=== PATIENT | female | born 1950 | race Caucasian/White ===

== ENCOUNTER 2018-12-16 11:19 | Emergency (ER) | payer MEDICARE, OTHER ==
--- NOTE | 2018-12-16 11:42 | ERPHSYRPT ---
- History of Present Illness Time Seen by Provider: 12/16/18 11:32 Source: patient Exam Limitations: no limitations Physician History: c/o sore throat, nonproductive cough x 2 days, denies fever, chills, headaches, nausea, vomiting, other complaints. Timing/Duration: gradual onset Severity: moderate ENT Location: throat Prearrival Treatment: no prearrival treatment Modifying Factors: Improves With: nothing Associated Symptoms: cough, sore throat Allergies/Adverse Reactions: Sulfa (Sulfonamide Antibiotics) Allergy (Verified 09/16/13 20:36) Home Medications: Ibandronate Sodium [Boniva] 150 mg PO UD 09/16/13 [History] Simvastatin 20Mg [Zocor 20Mg] 20 mg PO DAILY 09/16/13 [History] Hx Influenza Vaccination/Date Given: Yes (2012) Hx Pneumococcal Vaccination/Date Given: No - Review of Systems Constitutional: No Symptoms Eyes: No Symptoms Ears, Nose, & Throat: Throat Pain, Painful Swallowing, No Throat Swelling, No Hoarse, No Stridor Respiratory: Cough, No Dyspnea Cardiac: No Symptoms Abdominal/Gastrointestinal: No Symptoms Genitourinary Symptoms: No Symptoms Musculoskeletal: No Symptoms Skin: No Symptoms Neurological: No Symptoms All Other Systems: Reviewed and Negative - Past Medical History Neurological History: No Pertinent History Cardiac History: High Cholesterol Respiratory History: No Pertinent History Endocrine Medical History: No Pertinent History Musculoskeletal History: Arthritis Other Medical History: Osteopenia - Past Surgical History Past Surgical History: Yes Other Surgical History: cyst removed - Social History Smoking Status: Never smoker Exposure to second hand smoke: No Drug Use: none - Nursing Vital Signs Nursing Vital Signs: Initial Vital Signs Temperature 98.5 F 12/16/18 11:19 Pulse Rate 100 H 12/16/18 11:19 Respiratory Rate 20 12/16/18 11:19 Blood Pressure 145/95 12/16/18 11:19 O2 Sat by Pulse Oximetry 100 12/16/18 11:19 Pain Scale Pain Intensity 4 - Physical Exam General Appearance: no apparent distress Eye Exam: bilateral eye: normal inspection Ear Exam: bilateral ear: canal normal, TM normal Nasal Exam: normal inspection Throat Exam: normal, pharynx normal, moist mucus membranes, uvula swelling, No excessive drooling, No mandibular swelling, No pharynx swelling, No tongue swollen, No tonsillar exudate Neck Exam: normal inspection, non-tender, supple, trachea midline, No JVD, No lymphadenopathy (R), No lymphadenopathy (L), No tender midline Cardiovascular/Respiratory Exam: chest non-tender, normal breath sounds, heart sounds normal, no ecchymosis, no JVD, no respiratory distress, No regular rate/ rhythm Abdominal Exam: non-tender, soft Neurologic Exam: alert, oriented x 3, normal mood/affect Skin Exam: normal color, warm, dry, No rash SpO2 Interpretation: normal O2 Delivery: Room Air - Course Nursing assessment & vital signs reviewed: Yes - Radiology Exams Chest X-ray Interpretation: Interpreted by me, Negative Ordered Tests: Active Orders 24 hr Category Date Time Status CHEST 2 VIEWS (PA AND LAT) Stat Exams 12/16/18 11:39 Taken Lab/Rad Data: Laboratory Results 12/16/18 Range/Units 11:51 Group A Strep Antibody NEGATIVE (NEGATIVE) - Progress Progress: unchanged Progress Note: 12/16/18 13:07 Pt has been afebrile, no severe pain or difficulty breathing, we reviewed her results, instructed her to rest x 2-3 days, drink plenty of fluids, and gargle frequently, and follow up with her physician in 2-3 days. Counseled pt/family regarding: lab results, diagnosis, need for follow-up, rad results - Departure Departure Disposition: Home Clinical Impression: Pharyngitis Qualifiers: Pharyngitis/tonsillitis etiology: other specified organisms Qualified Code(s): J02.8 - Acute pharyngitis due to other specified organisms Condition: Stable Critical Care Time: No Referrals: MISSY YEPEZ [Primary Care Provider] - Instructions: Sore Throat, Adult (DC), Viral Pharyngitis (DC) Additional Instructions: Rest x 2-3 days, drink plenty of fluids, and gargle frequently with warm saline water, and follow up with your physician in 2-3 days, return if severe headaches , vomiting, high fever> 102 F!
[2018-12-16 11:55] VITALS: BP 145/95; PULSE 100; O2SAT 100
--- NOTE | 2018-12-16 16:37 | XRAY ---
Indication: Cough. Comparison: July 23, 2009. PA/lateral chest hyperinflated and clear. Heart is not enlarged. Bony thorax intact with mild osteopenia and degenerative changes. Impression: Nonacute hyperinflated chest.
== END 2018-12-16 13:22 | disposition home or self-care (01) ==
LOC: ED 11:19
DX: J02.8 Acute pharyngitis due to other specified organisms (principal)
CPT/HCPCS: 71046; 87651; 99283

== ENCOUNTER 2021-01-28 16:40 | Emergency (ER) | payer MEDICARE, OTHER ==
--- NOTE | 2021-01-28 16:51 | ERPHSYRPT ---
- History of Present Illness Time Seen by Provider: 01/28/21 16:50 Historian: patient Exam Limitations: no limitations Physician History: This is a 70-year-old white female had the week history of intermittent diarrhea and vomiting. Her symptoms are worse today. She has some generalized abdominal pain. She denies chest pain and she denies shortness of breath. Patient denies fevers and chills. No other individuals in the family of similar symptoms. Patient has not seen a primary care provider for the symptoms however this past weekend she did go to see [facility]. Timing/Duration: week(s) Activities at Onset: none Quality: cramping Abdominal Pain Onset Location: generalized abdomen Pain Radiation: no radiation Severity of Pain-Max: mild Severity of Pain-Current: mild Modifying Factors: Improves With: vomiting, other (Area) Associated Symptoms: diarrhea, nausea, vomiting Previous symptoms: same symptoms as today, recently seen Allergies/Adverse Reactions: Sulfa (Sulfonamide Antibiotics) Allergy (Verified 01/28/21 17:05) Hx Influenza Vaccination/Date Given: Yes (2012) Hx Pneumococcal Vaccination/Date Given: No Travel Risk - International Travel Have you traveled outside of the country in past 3 weeks: No - Coronavirus Screening Are you exhibiting any of the following symptoms?: No Close contact with a COVID-19 positive Pt in past 14-21 Days: No - Review of Systems Constitutional: Weakness Eyes: No Symptoms Ears, Nose, & Throat: No Symptoms Respiratory: No Symptoms Cardiac: No Symptoms Abdominal/Gastrointestinal: Abdominal Pain, Nausea, Vomiting, Diarrhea Genitourinary Symptoms: No Symptoms Musculoskeletal: No Symptoms Skin: No Symptoms Neurological: No Symptoms Psychological: No Symptoms Endocrine: No Symptoms Hematologic/Lymphatic: No Symptoms Immunological/Allergic: No Symptoms All Other Systems: Reviewed and Negative - Past Medical History Pertinent Past Medical History: Yes Neurological History: No Pertinent History Cardiac History: High Cholesterol Respiratory History: No Pertinent History Endocrine Medical History: No Pertinent History Musculoskeletal History: Arthritis Other Medical History: Osteopenia - Past Surgical History Past Surgical History: Yes Other Surgical History: cyst removed - Social History Smoking Status: Never smoker Exposure to second hand smoke: No Drug Use: none Patient Lives Alone: No - Nursing Vital Signs Nursing Vital Signs: Initial Vital Signs Temperature 97.2 F 01/28/21 17:00 Pulse Rate 81 01/28/21 17:00 Respiratory Rate 18 01/28/21 17:00 Blood Pressure 160/94 01/28/21 17:00 O2 Sat by Pulse Oximetry 100 01/28/21 17:00 Pain Scale Pain Intensity 10 - Physical Exam General Appearance: no apparent distress, alert, anxiety, thin Eye Exam: PERRL/EOMI, eyes nml inspection Ears, Nose, Throat Exam: normal ENT inspection, moist mucous membranes Neck Exam: normal inspection, non-tender, supple, full range of motion Respiratory Exam: normal breath sounds, lungs clear, No chest tenderness, No respiratory distress Cardiovascular Exam: regular rate/rhythm, normal heart sounds, normal peripheral pulses Gastrointestinal/Abdomen Exam: soft, normal bowel sounds, tenderness (Diffuse), No guarding Pelvic Exam: not done Rectal Exam: not done Back Exam: normal inspection, normal range of motion, No CVA tenderness, No vertebral tenderness Extremity Exam: normal inspection, normal range of motion, pelvis stable Neurologic Exam: alert, oriented x 3, cooperative, analytical research program manager II-XII nml as tested, normal mood/affect, nml cerebellar function, nml station & gait, sensation nml Skin Exam: normal color, warm, dry Lymphatic Exam: No adenopathy SpO2 Interpretation: normal O2 Delivery: Room Air - Course Nursing assessment & vital signs reviewed: Yes Ordered Tests: Active Orders 24 hr Category Date Time Status IV Insertion STAT Care 01/28/21 17:31 Active ABDOMEN AND PELVIS W/0 CONTRAS [CT] Stat Exams 01/28/21 17:32 Taken AMYLASE Stat Lab 01/28/21 17:53 Completed CBC W DIFF Stat Lab 01/28/21 17:53 Completed CMP Stat Lab 01/28/21 17:53 Completed LIPASE Stat Lab 01/28/21 17:53 Completed Lactic Acid Stat Lab 01/28/21 18:15 Completed UA W/RFX UR CULTURE Stat Lab 01/28/21 17:58 Completed Medication Summary Discontinued Medications Generic Name Dose Route Start Last Admin Trade Name Freq PRN Reason Stop Dose Admin Sodium Chloride 1,000 mls @ 999 mls/hr 01/28/21 17:31 01/28/21 17:48 Sodium Chloride 0.9% 1000 Ml IV 01/28/21 18:31 999 mls/hr .Q1H1M STA Administration Sodium Chloride Confirm 01/28/21 17:47 Sodium Chloride 0.9% 1000 Ml Administered 01/28/21 17:48 Dose 1,000 mls @ ud .ROUTE .STK-MED ONE Metronidazole 500 mg 01/28/21 19:21 Flagyl 500 Mg PO 01/28/21 19:22 STAT ONE Ondansetron HCl 4 mg 01/28/21 17:31 01/28/21 17:48 Zofran 4 Mg/2 Ml Vial IV 01/28/21 17:32 4 mg STAT ONE Administration Ondansetron HCl Confirm 01/28/21 17:47 Zofran 4 Mg/2 Ml Vial Administered 01/28/21 17:48 Dose 4 mg .ROUTE .STK-MED ONE Lab/Rad Data: Laboratory Result Diagrams 01/28/21 17:53 01/28/21 17:53 Laboratory Results 01/28/21 01/28/21 01/28/21 Range/Units 18:15 17:58 17:53 WBC (4.0-10.5) K/mm3 RBC (4.1-5.4) M/mm3 Hgb (12.0-16.0) gm/dl Hct (35-47) % MCV (78-100) fl MCH (26-32) pg MCHC (32-36) g/dl RDW (11.5-14.0) % Plt Count (150-450) K/mm3 MPV (7.5-11.0) fl Gran % (36.0-66.0) % Eos # (Auto) (0-0.5) Absolute Lymphs (auto) (1.0-4.6) Absolute Monos (auto) (0.0-1.3) Lymphocytes % (24.0-44.0) % Monocytes % (0.0-12.0) % Eosinophils % (0.00-5.0) % Basophils % (0.0-0.4) % Absolute Granulocytes (1.4-6.9) Basophils # (0-0.4) Sodium 140 (137-145) mmol/L Potassium 3.7 (3.5-5.1) mmol/L Chloride 104 (98-107) mmol/L Carbon Dioxide 28 (22-30) mmol/L Anion Gap 12.2 (5-15) MEQ/L BUN 17 (7-17) mg/dL Creatinine 0.68 (0.52-1.04) mg/dL Estimated GFR > 60.0 ML/MIN Glucose 97 (74-106) mg/dL Lactic Acid 1.0 (0.4-2.0) Calcium 9.5 (8.4-10.2) mg/dL Total Bilirubin 0.60 (0.2-1.3) mg/dL AST 30 (14-36) U/L ALT 18 (0-35) U/L Alkaline Phosphatase 60 (38-126) U/L Serum Total Protein 7.3 (6.3-8.2) g/dL Albumin 4.4 (3.5-5.0) g/dL Amylase 74 (30-110) U/L Lipase 132 (23-300) U/L Urine Color YELLOW (YELLOW) Urine Appearance CLEAR (CLEAR) Urine pH 6.0 (5-6) Ur Specific [place] 1.017 (1.005-1.025) Urine Protein NEGATIVE (Negative) Urine Ketones SMALL (NEGATIVE) Urine Blood NEGATIVE (0-5) Rolo/ul Urine Nitrite NEGATIVE (NEGATIVE) Urine Bilirubin NEGATIVE (NEGATIVE) Urine Urobilinogen NEGATIVE (0-1) mg/dL Ur Leukocyte Esterase NEGATIVE (NEGATIVE) Urine WBC (Auto) 0-2 (0-5) /HPF Urine RBC (Auto) 0-2 (0-2) /HPF U Epithel Cells (Auto) NONE (FEW) /HPF Urine Bacteria (Auto) NONE SEEN (NEGATIVE) /HPF Urine Mucus (Auto) SLIGHT (NEGATIVE) /HPF Urine Culture Reflexed NO (NO) Urine Glucose NEGATIVE (NEGATIVE) mg/dL 01/28/21 Range/Units 17:53 WBC 15.0 H (4.0-10.5) K/mm3 RBC 4.65 (4.1-5.4) M/mm3 Hgb 14.0 (12.0-16.0) gm/dl Hct 43.7 (35-47) % MCV 94.0 (78-100) fl MCH 30.1 (26-32) pg MCHC 32.0 (32-36) g/dl RDW 13.7 (11.5-14.0) % Plt Count 293 (150-450) K/mm3 MPV 9.8 (7.5-11.0) fl Gran % 87.0 H (36.0-66.0) % Eos # (Auto) 0.13 (0-0.5) Absolute Lymphs (auto) 1.00 (1.0-4.6) Absolute Monos (auto) 0.79 (0.0-1.3) Lymphocytes % 6.7 L (24.0-44.0) % Monocytes % 5.3 (0.0-12.0) % Eosinophils % 0.9 (0.00-5.0) % Basophils % 0.1 (0.0-0.4) % Absolute Granulocytes 13.04 H (1.4-6.9) Basophils # 0.02 (0-0.4) Sodium (137-145) mmol/L Potassium (3.5-5.1) mmol/L Chloride (98-107) mmol/L Carbon Dioxide (22-30) mmol/L Anion Gap (5-15) MEQ/L BUN (7-17) mg/dL Creatinine (0.52-1.04) mg/dL Estimated GFR ML/MIN Glucose (74-106) mg/dL Lactic Acid (0.4-2.0) Calcium (8.4-10.2) mg/dL Total Bilirubin (0.2-1.3) mg/dL AST (14-36) U/L ALT (0-35) U/L Alkaline Phosphatase (38-126) U/L Serum Total Protein (6.3-8.2) g/dL Albumin (3.5-5.0) g/dL Amylase (30-110) U/L Lipase (23-300) U/L Urine Color (YELLOW) Urine Appearance (CLEAR) Urine pH (5-6) Ur Specific [place] (1.005-1.025) Urine Protein (Negative) Urine Ketones (NEGATIVE) Urine Blood (0-5) Rolo/ul Urine Nitrite (NEGATIVE) Urine Bilirubin (NEGATIVE) Urine Urobilinogen (0-1) mg/dL Ur Leukocyte Esterase (NEGATIVE) Urine WBC (Auto) (0-5) /HPF Urine RBC (Auto) (0-2) /HPF U Epithel Cells (Auto) (FEW) /HPF Urine Bacteria (Auto) (NEGATIVE) /HPF Urine Mucus (Auto) (NEGATIVE) /HPF Urine Culture Reflexed (NO) Urine Glucose (NEGATIVE) mg/dL - Progress Progress Note: 01/28/21 19:10 CT scan of the abdomen pelvis without contrast shows mild fluid distended small bowel loops with wall thickening favoring enteritis. Remainder of AP CT scan negative Counseled pt/family regarding: lab results, diagnosis, need for follow-up, rad results - Departure Departure Disposition: Home Clinical Impression: Enteritis Condition: Stable Critical Care Time: No Referrals: MISSY YEPEZ [Primary Care Provider] - Additional Instructions: Drink plenty of clear liquids. Do not advance diet until you are tolerating a large amount of clear liquids orally. Take your medication as prescribed. Follow-up with your primary care doctor tomorrow to make arrangements for follow-up appointment. Prescriptions: Ondansetron ODT 4 MG [Zofran Odt 4 mg] 4 mg PO Q6H PRN PRN #10 tab.rapdis PRN Reason: Vomiting Metronidazole 500 mg [Flagyl 500 MG] 500 mg PO TID #21 tablet
[2021-01-28] MEDS ORDERED: Sodium Chloride 0.9% 1000 ML 1,000 ML IV STA (17:31)
[2021-01-28] MEDS ORDERED: Zofran 4 MG/2 ML VIAL IV ONE (17:31)
[2021-01-28] MEDS ORDERED: Zofran 4 MG/2 ML VIAL ONE (17:47)
[2021-01-28] MEDS ORDERED: Sodium Chloride 0.9% 1000 ML 1,000 ML ONE (17:47)
[2021-01-28 18:00] LABS: Absolute Neutrophil Ct (ANC) 13.04 (1.4-6.9); BASOPHIL % 0.1 % (0.0-0.4); Basophil (Absolute #) 0.02 (0-0.4); Eosinophil % 0.9 % (0.00-5.0); Eosinophil (Absolute #) 0.13 (0-0.5); Hematocrit 43.7 % (35-47); Lymphocytes % 6.7 % (24.0-44.0); Mean Corpuscular Hemoglobin 30.1 pg (26-32); Mean Platelet Volume 9.8 fl (7.5-11.0); Monocyte (Absolute #) 0.79 (0.0-1.3); Monocytes % 5.3 % (0.0-12.0); Platelet Count 293 K/mm3 (150-450); Red Blood Count 4.65 M/mm3 (4.1-5.4); Red Cell Distribution Width 13.7 % (11.5-14.0)
[2021-01-28 18:03] LABS: Appearance CLEAR (CLEAR); Bilirubin NEGATIVE (NEGATIVE); Blood NEGATIVE Ery/ul (0-5); Glucose NEGATIVE (NEGATIVE); Ketones SMALL (NEGATIVE); Leukocyte Esterase NEGATIVE (NEGATIVE); Mucus SLIGHT /HPF (NEGATIVE); Nitrite NEGATIVE (NEGATIVE); Protein,Urine Dip NEGATIVE (Negative); RBC 0-2 /HPF (0-2); Specific Gravity 1.017 (1.005-1.025); Urobilinogen NEGATIVE mg/dL (0-1); WBC 0-2 /HPF (0-5)
[2021-01-28 18:14] LABS: ALBUMIN 4.4 g/dL (3.5-5.0); ALKALINE PHOSPHATASE 60 U/L (38-126); AMYLASE 74 U/L (30-110); ANION GAP 12.2 MEQ/L (5-15); BLOOD UREA NITROGEN 17 mg/dL (7-17); CHLORIDE 104 mmol/L (98-107); Calcium 9.5 mg/dL (8.4-10.2); Carbon Dioxide 28 mmol/L (22-30); Creatinine 1 0.68 mg/dL (0.52-1.04); EST GLOMERULAR FILTRATION RATE > 60.0 ML/MIN; Glucose 97 mg/dL (74-106); LIPASE 132 U/L (23-300); Potassium 3.7 mmol/L (3.5-5.1); SGOT/AST 30 U/L (14-36); SGPT/ALT 18 U/L (0-35); SODIUM 140 mmol/L (137-145); Total Protein 7.3 g/dL (6.3-8.2)
[2021-01-28 18:19] LABS: Bacteria NONE SEEN /HPF (NEGATIVE)
[2021-01-28] MEDS ORDERED: Flagyl 500 MG PO ONE (19:21)
[2021-01-28] MEDS ORDERED: ZOFRAN ODT 4 MG PO ONE (19:22)
[2021-01-28] MEDS ORDERED: Flagyl 500 MG ONE (19:27)
[2021-01-28] MEDS ORDERED: ZOFRAN ODT 4 MG ONE (19:27)
[2021-01-28 19:50] VITALS: BP 162/88; PULSE 75; O2SAT 99
--- NOTE | 2021-01-29 08:50 | XRAY ---
Indication: Abdomen pain, nausea, vomiting, diarrhea. Multiple contiguous axial images obtained through the abdomen and pelvis without contrast. Comparison: None Lung bases demonstrates minimal left base fibrosis/scarring. No infiltrate or effusion. Heart not enlarged. Noncontrasted stomach and bowel loops appear nonobstructed. Mild fluid distended small bowel loops with several demonstrating circumferential wall thickening in the left abdomen favoring enteritis. No free fluid/air. Appendix not visualized. A few nonobstructing punctate calculi in each kidney. Remaining liver, gallbladder, pancreas, spleen, adrenal glands, kidneys, ureters, bladder, and uterus appear unremarkable for noncontrast exam. Mild scattered aortoiliac calcifications without AAA. Osseous structures demonstrates osteopenia, mild/moderate multilevel degenerative spondylosis, and bilateral L5 spondylolysis with 8 mm spondylolisthesis. Impression: 1. CT findings favoring enteritis. No complications. 2. Incidental nonobstructing bilateral renal micro-calculi and chronic bony findings. 3. Remaining CT abdomen/pelvis without contrast exam is negative.
== END 2021-01-28 20:02 | disposition home or self-care (01) ==
LOC: ED 16:40
DX: K52.9 Noninfective gastroenteritis and colitis, unspecified (principal); R19.7 Diarrhea, unspecified; R11.2 Nausea with vomiting, unspecified; R10.9 Unspecified abdominal pain; E78.00 Pure hypercholesterolemia, unspecified
CPT/HCPCS: 36000; 36415; 74176; 80053; 81001; 82150; 83605; 83690; 85025; 96360; 96374; 99284; J2405; Q0162; A9270-GY

== ENCOUNTER 2021-05-19 16:50 | Emergency (ER) | payer MEDICARE, OTHER ==
--- NOTE | 2021-05-19 18:35 | ERPHSYRPT ---
- History of Present Illness Time Seen by Provider: 05/19/21 17:55 Source: patient Exam Limitations: no limitations Patient Subjective Stated Complaint: Pt c/o of weakness, body aches, headache, diarrhea, and nausea Triage Nursing Assessment: Pt brought to the ER by her , hypertensive, rates overall body pain as 8/10, shivering, afebrile, skin n/w/d, pulses normal, weak, decreased appetite and fluids Physician History: Patient is a 71-year-old female presents to our ED with her for evaluation of generalized weakness body aches headaches and diarrhea. Patient also feels mildly nauseous. Symptoms have been ongoing for approximately 2 to 3 days. Symptoms are progressive. Symptoms are moderate in intensity. No specific worsening improving factors. No associated chest pain or shortness of breath. Patient is currently afebrile. She reports no fevers. Decreased appetite. Timing/Duration: day(s) Severity: moderate Modifying Factors: Improves With: nothing Associated Symptoms: diaphoresis Allergies/Adverse Reactions: Sulfa (Sulfonamide Antibiotics) Allergy (Verified 05/19/21 19:02) Home Medications: Unobtainable 05/19/21 [History] Hx Tetanus, Diphtheria Vaccination/Date Given: No Hx Influenza Vaccination/Date Given: Yes (2012) Hx Pneumococcal Vaccination/Date Given: No Travel Risk - International Travel Have you traveled outside of the country in past 3 weeks: No - Coronavirus Screening Are you exhibiting any of the following symptoms?: Yes Symptoms: Vomiting/Diarrhea, Headaches/Body Aches/Fatigue Close contact with a COVID-19 positive Pt in past 14-21 Days: No - Vaccine Status Have you recieved a Covid-19 vaccination: No - Review of Systems Constitutional: No Symptoms, No Fever, No Chills Eyes: No Symptoms Ears, Nose, & Throat: No Symptoms Respiratory: No Symptoms, No Cough, No Dyspnea Cardiac: No Symptoms, No Chest Pain, No Edema, No Syncope Abdominal/Gastrointestinal: No Symptoms, No Abdominal Pain, No Nausea, No Vomiting, No Diarrhea Genitourinary Symptoms: No Symptoms, No Dysuria Musculoskeletal: No Symptoms, No Back Pain, No Neck Pain Skin: No Symptoms, No Rash Neurological: No Symptoms, No Dizziness, No Focal Weakness, No Sensory Changes Psychological: No Symptoms Endocrine: No Symptoms Hematologic/Lymphatic: No Symptoms Immunological/Allergic: No Symptoms All Other Systems: Reviewed and Negative - Past Medical History Pertinent Past Medical History: Yes Neurological History: No Pertinent History Cardiac History: High Cholesterol Respiratory History: No Pertinent History Endocrine Medical History: No Pertinent History Musculoskeletal History: Arthritis Other Medical History: Osteopenia - Past Surgical History Past Surgical History: Yes Other Surgical History: cyst removed - Social History Smoking Status: Never smoker Exposure to second hand smoke: No Drug Use: none Patient Lives Alone: No - Female History Hx Now: No - Nursing Vital Signs Nursing Vital Signs: Initial Vital Signs Temperature 98.5 F 05/19/21 17:50 Pulse Rate 76 05/19/21 17:50 Blood Pressure 170/114 05/19/21 17:50 O2 Sat by Pulse Oximetry 98 05/19/21 17:50 Pain Scale Pain Intensity 4 - Physical Exam General Appearance: no apparent distress, alert Eye Exam: PERRL/EOMI, eyes nml inspection Ears, Nose, Throat Exam: normal ENT inspection, TMs normal, pharynx normal, moist mucous membranes Neck Exam: normal inspection, non-tender, supple, full range of motion Respiratory Exam: normal breath sounds, lungs clear, No respiratory distress Cardiovascular Exam: regular rate/rhythm, normal heart sounds, normal peripheral pulses Gastrointestinal/Abdomen Exam: soft, normal bowel sounds, No tenderness, No mass Back Exam: normal inspection, normal range of motion, No CVA tenderness, No vertebral tenderness Extremity Exam: normal inspection, normal range of motion, pelvis stable Neurologic Exam: alert, oriented x 3, cooperative, normal mood/affect, nml cerebellar function, nml station & gait, sensation nml, No motor deficits Skin Exam: normal color, warm, dry, No rash Lymphatic Exam: No adenopathy SpO2 Interpretation: normal SpO2: 98 O2 Delivery: Room Air - Course Nursing assessment & vital signs reviewed: Yes EKG Interpreted by Me: RATE (69), Sinus Rhythm, NORMAL AXIS, NORMAL INTERVALS Ordered Tests: Active Orders 24 hr Category Date Time Status Property Condition Assessor STAT Care 05/19/21 18:35 Active IV Insertion STAT Care 05/19/21 18:34 Active Pulse Oximetry (ED) STAT Care 05/19/21 18:34 Active CBC W DIFF Stat Lab 05/19/21 18:34 Completed CMP Stat Lab 05/19/21 18:34 Completed TROPONIN Q3H Lab 05/19/21 18:45 Completed TROPONIN Q3H Lab 05/19/21 21:45 Ordered TROPONIN Q3H Lab 05/20/21 00:45 Ordered TROPONIN Q3H Lab 05/20/21 03:45 Ordered TROPONIN Q3H Lab 05/20/21 06:45 Ordered UA W/RFX UR CULTURE Stat Lab 05/19/21 18:34 Completed Medication Summary Generic Name Dose Route Start Last Admin Trade Name Freq PRN Reason Stop Dose Admin Sodium Chloride 1,000 mls @ 100 mls/hr 05/19/21 18:45 05/19/21 18:40 Sodium Chloride 0.9% 1000 Ml IV 06/18/21 18:44 100 mls/hr .Q10H ARIELLA Administration Discontinued Medications Generic Name Dose Route Start Last Admin Trade Name Freq PRN Reason Stop Dose Admin Ondansetron HCl 4 mg 05/19/21 20:12 Zofran 4 Mg/2 Ml Vial IV 05/19/21 20:13 STAT ONE Lab/Rad Data: Laboratory Result Diagrams 05/19/21 18:34 05/19/21 18:34 Laboratory Results 05/19/21 05/19/21 05/19/21 Range/Units 18:45 18:34 18:34 WBC 4.5 (4.0-10.5) K/mm3 RBC 4.05 L (4.1-5.4) M/mm3 Hgb 12.4 (12.0-16.0) gm/dl Hct 37.6 (35-47) % MCV 92.8 (78-100) fl MCH 30.6 (26-32) pg MCHC 33.0 (32-36) g/dl RDW 13.2 (11.5-14.0) % Plt Count 180 (150-450) K/mm3 MPV 11.1 H (7.5-11.0) fl Gran % 61.6 (36.0-66.0) % Eos # (Auto) 0.01 (0-0.5) Absolute Lymphs (auto) 1.20 (1.0-4.6) Absolute Monos (auto) 0.52 (0.0-1.3) Lymphocytes % 26.5 (24.0-44.0) % Monocytes % 11.5 (0.0-12.0) % Eosinophils % 0.2 (0.00-5.0) % Basophils % 0.2 (0.0-0.4) % Absolute Granulocytes 2.78 (1.4-6.9) Basophils # 0.01 (0-0.4) Sodium 136 L (137-145) mmol/L Potassium 3.6 (3.5-5.1) mmol/L Chloride 104 (98-107) mmol/L Carbon Dioxide 22 (22-30) mmol/L Anion Gap 13.9 (5-15) MEQ/L BUN 14 (7-17) mg/dL Creatinine 0.59 (0.52-1.04) mg/dL Estimated GFR > 60.0 ML/MIN Glucose 98 (74-106) mg/dL Calcium 8.8 (8.4-10.2) mg/dL Total Bilirubin 0.40 (0.2-1.3) mg/dL AST 42 H (14-36) U/L ALT 24 (0-35) U/L Alkaline Phosphatase 53 (38-126) U/L Troponin I < 0.012 (0.000-0.034) ng/mL Serum Total Protein 7.1 (6.3-8.2) g/dL Albumin 4.2 (3.5-5.0) g/dL Urine Color (YELLOW) Urine Appearance (CLEAR) Urine pH (5-6) Ur Specific [place] (1.005-1.025) Urine Protein (Negative) Urine Ketones (NEGATIVE) Urine Blood (0-5) Rolo/ul Urine Nitrite (NEGATIVE) Urine Bilirubin (NEGATIVE) Urine Urobilinogen (0-1) mg/dL Ur Leukocyte Esterase (NEGATIVE) Urine WBC (Auto) (0-5) /HPF Urine RBC (Auto) (0-2) /HPF U Epithel Cells (Auto) (FEW) /HPF Urine Bacteria (Auto) (NEGATIVE) /HPF Urine Culture Reflexed (NO) Urine Glucose (NEGATIVE) mg/dL 05/19/21 Range/Units 18:34 WBC (4.0-10.5) K/mm3 RBC (4.1-5.4) M/mm3 Hgb (12.0-16.0) gm/dl Hct (35-47) % MCV (78-100) fl MCH (26-32) pg MCHC (32-36) g/dl RDW (11.5-14.0) % Plt Count (150-450) K/mm3 MPV (7.5-11.0) fl Gran % (36.0-66.0) % Eos # (Auto) (0-0.5) Absolute Lymphs (auto) (1.0-4.6) Absolute Monos (auto) (0.0-1.3) Lymphocytes % (24.0-44.0) % Monocytes % (0.0-12.0) % Eosinophils % (0.00-5.0) % Basophils % (0.0-0.4) % Absolute Granulocytes (1.4-6.9) Basophils # (0-0.4) Sodium (137-145) mmol/L Potassium (3.5-5.1) mmol/L Chloride (98-107) mmol/L Carbon Dioxide (22-30) mmol/L Anion Gap (5-15) MEQ/L BUN (7-17) mg/dL Creatinine (0.52-1.04) mg/dL Estimated GFR ML/MIN Glucose (74-106) mg/dL Calcium (8.4-10.2) mg/dL Total Bilirubin (0.2-1.3) mg/dL AST (14-36) U/L ALT (0-35) U/L Alkaline Phosphatase (38-126) U/L Troponin I (0.000-0.034) ng/mL Serum Total Protein (6.3-8.2) g/dL Albumin (3.5-5.0) g/dL Urine Color COLORLESS (YELLOW) Urine Appearance CLEAR (CLEAR) Urine pH 7.0 (5-6) Ur Specific [place] 1.003 (1.005-1.025) Urine Protein NEGATIVE (Negative) Urine Ketones NEGATIVE (NEGATIVE) Urine Blood NEGATIVE (0-5) Rolo/ul Urine Nitrite NEGATIVE (NEGATIVE) Urine Bilirubin NEGATIVE (NEGATIVE) Urine Urobilinogen NEGATIVE (0-1) mg/dL Ur Leukocyte Esterase NEGATIVE (NEGATIVE) Urine WBC (Auto) NONE (0-5) /HPF Urine RBC (Auto) NONE (0-2) /HPF U Epithel Cells (Auto) NONE (FEW) /HPF Urine Bacteria (Auto) NONE (NEGATIVE) /HPF Urine Culture Reflexed NO (NO) Urine Glucose NEGATIVE (NEGATIVE) mg/dL - Progress Progress: improved Progress Note: Patient declined Covid testing. Patient states is ready for discharge. Will discharge at this time. Labs are essentially nonremarkable. Given patient symptomology it appears patient may have Covid. Patient advised to quarantine in spite of the fact she declined testing. Patient agrees to follow-up with primary care doctor within 48 hours for evaluation. 05/19/21 20:17 05/19/21 20:20 UA negative. Counseled pt/family regarding: lab results, diagnosis, need for follow-up, rad results - Departure Departure Disposition: Home Clinical Impression: Generalized weakness, Viral syndrome Condition: Stable Critical Care Time: No Referrals: JAIME ONEAL [Primary Care Provider] - Additional Instructions: Discharge/Care Plan YVETTE GODWIN was seen on 05/19/21 in the Emergency Room. The patient was counseled regarding Diagnosis,Lab results, Imaging studies, need for follow up and when to return to the Emergency Room. Prescriptions given: Discharge Note I have spoken with the patient and/or caregivers. I have explained the patient's condition, diagnosis and treatment plan based on the information available to me at this time. I have answered the patient's and/or caregiver's questions and addressed any concerns. The patient and/or caregivers have as good understanding of the patient's diagnosis, condition and treatment plan as can be expected at this point. The vital signs have been stable. The patient's condition is stable and appropriate for discharge from the emergency department. The patient will pursue further outpatient evaluation with the primary care physician or other designated or consulting physician as outlined in the discharge instructions. The patient and/or caregivers are agreeable to this plan of care and follow-up instructions have been explained in detail. The patient and/or caregivers have received these instruction. The patient/and or caregivers are aware that any significant change in condition or worsening of symptoms should prompt an immediate return to this or the closest emergency department or call 911.
[2021-05-19] MEDS ORDERED: Sodium Chloride 0.9% 1000 ML 1,000 ML ONE (18:39)
[2021-05-19] MEDS ORDERED: Sodium Chloride 0.9% 1000 ML 1,000 ML IV SCH (18:45)
[2021-05-19 18:56] LABS: Appearance CLEAR (CLEAR); Bilirubin NEGATIVE (NEGATIVE); Blood NEGATIVE Ery/ul (0-5); Glucose NEGATIVE (NEGATIVE); Ketones NEGATIVE (NEGATIVE); Leukocyte Esterase NEGATIVE (NEGATIVE); Nitrite NEGATIVE (NEGATIVE); Protein,Urine Dip NEGATIVE (Negative); Specific Gravity 1.003 (1.005-1.025); Urobilinogen NEGATIVE mg/dL (0-1)
[2021-05-19 19:07] VITALS: O2SAT 98
[2021-05-19 19:12] LABS: Absolute Neutrophil Ct (ANC) 2.78 (1.4-6.9); BASOPHIL % 0.2 % (0.0-0.4); Basophil (Absolute #) 0.01 (0-0.4); Eosinophil % 0.2 % (0.00-5.0); Eosinophil (Absolute #) 0.01 (0-0.5); Hematocrit 37.6 % (35-47); Hemoglobin 12.4 gm/dl (12.0-16.0); Lymphocytes % 26.5 % (24.0-44.0); Mean Cell Volume 92.8 fl (78-100); Mean Corpuscular Hemoglobin 30.6 pg (26-32); Mean Platelet Volume 11.1 fl (7.5-11.0); Monocyte (Absolute #) 0.52 (0.0-1.3); Monocytes % 11.5 % (0.0-12.0); Neutrophil % 61.6 % (36.0-66.0); Platelet Count 180 K/mm3 (150-450); Red Blood Count 4.05 M/mm3 (4.1-5.4); Red Cell Distribution Width 13.2 % (11.5-14.0); White Blood Count 4.5 K/mm3 (4.0-10.5)
[2021-05-19 19:21] LABS: ALBUMIN 4.2 g/dL (3.5-5.0); ALKALINE PHOSPHATASE 53 U/L (38-126); ANION GAP 13.9 MEQ/L (5-15); BLOOD UREA NITROGEN 14 mg/dL (7-17); CHLORIDE 104 mmol/L (98-107); Calcium 8.8 mg/dL (8.4-10.2); Carbon Dioxide 22 mmol/L (22-30); Creatinine 1 0.59 mg/dL (0.52-1.04); EST GLOMERULAR FILTRATION RATE > 60.0 ML/MIN; Glucose 98 mg/dL (74-106); Potassium 3.6 mmol/L (3.5-5.1); SGOT/AST 42 U/L (14-36); SGPT/ALT 24 U/L (0-35); SODIUM 136 mmol/L (137-145); Total Protein 7.1 g/dL (6.3-8.2)
[2021-05-19] MEDS ORDERED: Zofran 4 MG/2 ML VIAL IV ONE (20:12)
[2021-05-19] MEDS ORDERED: Zofran 4 MG/2 ML VIAL ONE (20:19)
[2021-05-19 21:40] VITALS: BP 167/77; PULSE 80
== END 2021-05-19 21:40 | disposition home or self-care (01) ==
LOC: ED 16:50
DX: R53.1 Weakness (principal); B34.9 Viral infection, unspecified
CPT/HCPCS: 36000; 36415; 80053; 81001; 84484; 85025; 94760; 96374; 99284; J2405

== ENCOUNTER 2022-06-17 19:00 | Emergency (ER) | payer MEDICARE, OTHER ==
[2022-06-17] MEDS ORDERED: TORAdol 30 mg Injection IV ONE (20:43)
--- NOTE | 2022-06-17 20:48 | ERPHSYRPT ---
- History of Present Illness Historian: patient Exam Limitations: no limitations Patient Subjective Stated Complaint: pt states "I have been having this pain to my lower stomach for the past few weeks. I have had dark stool. I have this pain in my lower back." Triage Nursing Assessment: pt ambulated into the er; pt is axo x4; c/o abd pain; pt states 9/10 pain to lower abd; abd is soft, tenderness; hyperactive bowel sounds; urine is yellow and cloudy; pt denies V/D; pt states nausea a few days ago; hypertensive Physician History: 72 yo wf w supra-pubic pain x 2 wks. Pain is sharp, 7/10, and worse w lying down. She has had nausea wo vomitin g/diarrhea/melena/hematochezia/dysuria/hematuria/chest pain. Timing/Duration: other (2 wks) Activities at Onset: rest Quality: sharpness, stabbing Abdominal Pain Onset Location: suprapubic Pain Radiation: no radiation Severity of Pain-Max: severe Severity of Pain-Current: moderate Modifying Factors: Improves With: lying down (Better lying down) Associated Symptoms: loss of appetite, nausea, No back, No chest pain, No diaphoresis, No diarrhea, No fever/chills, No fatigue, No headache, No heartburn, No neck pain, No rash, No shortness of breath, No syncope, No vomiting, No weakness Previous symptoms: same symptoms as today Allergies/Adverse Reactions: Sulfa (Sulfonamide Antibiotics) Allergy (Verified 05/19/21 19:02) Hx Tetanus, Diphtheria Vaccination/Date Given: No Hx Influenza Vaccination/Date Given: No Hx Pneumococcal Vaccination/Date Given: No Travel Risk - International Travel Have you traveled outside of the country in past 3 weeks: No - Coronavirus Screening Are you exhibiting any of the following symptoms?: No Close contact with a COVID-19 positive Pt in past 14-21 Days: No - Vaccine Status Have you recieved a Covid-19 vaccination: No - Review of Systems Constitutional: No Symptoms Eyes: No Symptoms Ears, Nose, & Throat: No Symptoms Respiratory: No Symptoms Cardiac: No Symptoms Abdominal/Gastrointestinal: No Symptoms, Abdominal Pain, Nausea Genitourinary Symptoms: No Symptoms Musculoskeletal: No Symptoms Skin: No Symptoms Neurological: No Symptoms Psychological: No Symptoms Endocrine: No Symptoms Hematologic/Lymphatic: No Symptoms Immunological/Allergic: No Symptoms - Past Medical History Pertinent Past Medical History: Yes Neurological History: No Pertinent History ENT History: No Pertinent History Cardiac History: High Cholesterol Respiratory History: No Pertinent History Endocrine Medical History: No Pertinent History Musculoskeletal History: Arthritis GI Medical History: No Pertinent History History: No Pertinent History Psycho-Social History: No Pertinent History Female Reproductive Disorders: No Pertinent History Other Medical History: Osteopenia - Past Surgical History Past Surgical History: Yes Neuro Surgical History: No Pertinent History Cardiac: No Pertinent History Respiratory: No Pertinent History Gastrointestinal: No Pertinent History Genitourinary: No Pertinent History Musculoskeletal: No Pertinent History Female Surgical History: No Pertinent History Other Surgical History: cyst removed left breast - Social History Smoking Status: Never smoker Exposure to second hand smoke: No Drug Use: none Patient Lives Alone: No - Nursing Vital Signs Nursing Vital Signs: Initial Vital Signs Temperature 99.6 F 06/17/22 20:00 Pulse Rate 76 06/17/22 20:00 Respiratory Rate 18 06/17/22 20:00 Blood Pressure 177/79 06/17/22 20:00 O2 Sat by Pulse Oximetry 100 06/17/22 20:00 Pain Scale Pain Intensity 9 Hypertensive - Physical Exam General Appearance: no apparent distress Eye Exam: PERRL/EOMI, eyes nml inspection Ears, Nose, Throat Exam: normal ENT inspection, TMs normal, pharynx normal, moist mucous membranes Neck Exam: normal inspection, non-tender, supple, full range of motion, No meningismus, No mass, No Brudzinski, No Kernig's Respiratory Exam: normal breath sounds, lungs clear, airway intact, No respira tory distress Cardiovascular Exam: regular rate/rhythm, normal heart sounds, normal peripheral pulses, capillary refill <2 sec, No murmur Gastrointestinal/Abdomen Exam: soft, tenderness (Moderate supra-pubic TTP wo guarding or rebound) Back Exam: normal inspection, normal range of motion, No CVA tenderness, No vertebral tenderness Extremity Exam: normal inspection, normal range of motion Neurologic Exam: alert, oriented x 3, cooperative, doubler operator II-XII nml as tested, normal mood/affect, nml cerebellar function, nml station & gait, sensation nml Skin Exam: normal color, warm, dry Lymphatic Exam: No adenopathy SpO2 Interpretation: normal SpO2: 100 O2 Delivery: Room Air - Course Nursing assessment & vital signs reviewed: Yes - CT Exams Abdomen/Pelvis CT Interpretation: Tele-radiologist Report (Ct abdomen-pelvis w contrast-mild sigmoid divertivulitis) Ordered Tests: Active Orders 24 hr Category Date Time Status IV Insertion STAT Care 06/17/22 20:42 Completed ABDOMEN AND PELVIS W CONTRAST [CT] Stat Exams 06/17/22 22:27 Taken AMYLASE Stat Lab 06/17/22 21:12 Completed CBC W DIFF Stat Lab 06/17/22 21:12 Completed CMP Stat Lab 06/17/22 21:12 Completed CULTURE,URINE Stat Lab 06/17/22 20:27 Received LIPASE Stat Lab 06/17/22 21:12 Completed Lactic Acid Stat Lab 06/17/22 21:20 Completed TROPONIN Q4H Lab 06/17/22 21:12 Completed UA W/RFX CULTURE Stat Lab 06/17/22 20:27 Completed Medication Summary Discontinued Medications Generic Name Dose Route Start Last Admin Trade Name Isacc PRN Reason Stop Dose Admin Hydrocodone Bitart/Acetaminophen 2 tab 06/18/22 00:09 06/18/22 00:18 Hydrocodone/Apap 5/325 Mg Tablet PO 06/18/22 00:10 2 tab SENT HOME W/ PATIENT ONE Administration Hydrocodone Bitart/Acetaminophen Confirm 06/18/22 00:16 Hydrocodone/Apap 5/325 Mg Tablet Administered 06/18/22 00:17 Dose 2 tab .ROUTE .STK-MED ONE Ciprofloxacin 500 mg 06/18/22 00:04 06/18/22 00:09 Ciprofloxacin 500 Mg Tablet PO 06/18/22 00:05 500 mg STAT ONE Administration Ciprofloxacin Confirm 06/18/22 00:07 Ciprofloxacin 500 Mg Tablet Administered 06/18/22 00:08 Dose 500 mg .ROUTE .STK-MED ONE Ketorolac Tromethamine 15 mg 06/17/22 20:43 06/17/22 21:15 Ketorolac Tromethamine 30 Mg/Ml Inj IV 06/17/22 20:44 15 mg STAT ONE Administration Ketorolac Tromethamine Confirm 06/17/22 20:54 Ketorolac Tromethamine 30 Mg/Ml Inj Administered 06/17/22 20:55 Dose 30 mg .ROUTE .STK-MED ONE Metronidazole 500 mg 06/18/22 00:04 06/18/22 00:09 Metronidazole 500 Mg Tablet PO 06/18/22 00:05 500 mg STAT ONE Administration Metronidazole Confirm 06/18/22 00:08 Metronidazole 500 Mg Tablet Administered 06/18/22 00:09 Dose 500 mg .ROUTE .STK-MED ONE Lab/Rad Data: Laboratory Result Diagrams 06/17/22 21:12 06/17/22 21:12 Laboratory Results 06/17/22 06/17/22 06/17/22 Range/Units 21:20 21:12 21:12 WBC (4.0-10.5) x10^3/uL RBC (4.1-5.4) x10^6/uL Hgb (12.0-16.0) g/dL Hct (35-47) % MCV (78-100) fL MCH (26-32) pg MCHC (32-36) g/dL RDW (11.5-14.0) % Plt Count (150-450) x10^3/uL MPV (7.5-11.0) fL Gran % (36.0-66.0) % Immature Gran % (Auto) (0.00-0.4) % Nucleat RBC Rel Count (0.00-0.1) % Eos # (Auto) (0-0.5) x10^3/uL Immature Gran # (Auto) (0.00-0.03) x10^3u/L Absolute Lymphs (auto) (1.0-4.6) x10^3/uL Absolute Monos (auto) (0.0-1.3) x10^3/uL Absolute Nucleated RBC (0.00-0.01) x10^3u/L Lymphocytes % (24.0-44.0) % Monocytes % (0.0-12.0) % Eosinophils % (0.00-5.0) % Basophils % (0.0-0.4) % Absolute Granulocytes (1.4-6.9) x10^3/uL Basophils # (0-0.4) x10^3/uL Sodium 134 L (137-145) mmol/L Potassium 3.7 (3.5-5.1) mmol/L Chloride 101 (98-107) mmol/L Carbon Dioxide 27 (22-30) mmol/L Anion Gap 9.5 (5-15) MEQ/L BUN 17 (7-17) mg/dL Creatinine 0.74 (0.52-1.04) mg/dL Estimated GFR > 60.0 ML/MIN Glucose 99 (74-106) mg/dL Lactic Acid 0.7 (0.4-2.0) Calcium 8.8 (8.4-10.2) mg/dL Total Bilirubin 0.70 (0.2-1.3) mg/dL AST 25 (14-36) U/L ALT 20 (0-35) U/L Alkaline Phosphatase 60 (38-126) U/L Troponin I < 0.012 (0.000-0.034) ng/mL Serum Total Protein 7.1 (6.3-8.2) g/dL Albumin 4.1 (3.5-5.0) g/dL Amylase 70 (30-110) U/L Lipase 103 (23-300) U/L Urinalys Dipstick Clnc Urine Color (YELLOW) Urine Appearance (CLEAR) Urine pH (5-6) Ur Specific [place] (1.005-1.025) POC Urine Protein Conf (Negative) Urine Ketones (NEGATIVE) Urine Nitrite (NEGATIVE) Urine Bilirubin (NEGATIVE) Urine Urobilinogen (0-1) mg/dL Urine Leukocytes (NEGATIVE) Urine WBC (Auto) (0-5) /HPF Urine RBC (Auto) (0-2) /HPF U Epithel Cells (Auto) (FEW) /HPF Urine Bacteria (Auto) (NEGATIVE) /HPF Urine RBC (0-5) Rolo/ul Urine Mucus (Auto) (NEGATIVE) /HPF Ur Culture Indicated? Urine Glucose (NEGATIVE) mg/dL 06/17/22 06/17/22 Range/Units 21:12 20:27 WBC 12.3 H (4.0-10.5) x10^3/uL RBC 3.72 L (4.1-5.4) x10^6/uL Hgb 11.4 L (12.0-16.0) g/dL Hct 34.5 L (35-47) % MCV 92.7 (78-100) fL MCH 30.6 (26-32) pg MCHC 33.0 (32-36) g/dL RDW 13.6 (11.5-14.0) % Plt Count 209 (150-450) x10^3/uL MPV 9.9 (7.5-11.0) fL Gran % 74.9 H (36.0-66.0) % Immature Gran % (Auto) 0.5 H (0.00-0.4) % Nucleat RBC Rel Count 0.0 (0.00-0.1) % Eos # (Auto) 0.02 (0-0.5) x10^3/uL Immature Gran # (Auto) 0.06 H (0.00-0.03) x10^3u/L Absolute Lymphs (auto) 1.80 (1.0-4.6) x10^3/uL Absolute Monos (auto) 1.17 (0.0-1.3) x10^3/uL Absolute Nucleated RBC 0.00 (0.00-0.01) x10^3u/L Lymphocytes % 14.6 L (24.0-44.0) % Monocytes % 9.5 (0.0-12.0) % Eosinophils % 0.2 (0.00-5.0) % Basophils % 0.3 (0.0-0.4) % Absolute Granulocytes 9.25 H (1.4-6.9) x10^3/uL Basophils # 0.04 (0-0.4) x10^3/uL Sodium (137-145) mmol/L Potassium (3.5-5.1) mmol/L Chloride (98-107) mmol/L Carbon Dioxide (22-30) mmol/L Anion Gap (5-15) MEQ/L BUN (7-17) mg/dL Creatinine (0.52-1.04) mg/dL Estimated GFR ML/MIN Glucose (74-106) mg/dL Lactic Acid (0.4-2.0) Calcium (8.4-10.2) mg/dL Total Bilirubin (0.2-1.3) mg/dL AST (14-36) U/L ALT (0-35) U/L Alkaline Phosphatase (38-126) U/L Troponin I (0.000-0.034) ng/mL Serum Total Protein (6.3-8.2) g/dL Albumin (3.5-5.0) g/dL Amylase (30-110) U/L Lipase (23-300) U/L Urinalys Dipstick Clnc MAIN LAB Urine Color YELLOW (YELLOW) Urine Appearance SLIGHTLY CLOUDY (CLEAR) Urine pH 8.0 (5-6) Ur Specific [place] 1.020 (1.005-1.025) POC Urine Protein Conf NEGATIVE (Negative) Urine Ketones TRACE (NEGATIVE) Urine Nitrite NEGATIVE (NEGATIVE) Urine Bilirubin NEGATIVE (NEGATIVE) Urine Urobilinogen 0.2 (0-1) mg/dL Urine Leukocytes NEGATIVE (NEGATIVE) Urine WBC (Auto) 11-15 (0-5) /HPF Urine RBC (Auto) 3-5 (0-2) /HPF U Epithel Cells (Auto) NONE (FEW) /HPF Urine Bacteria (Auto) RARE (NEGATIVE) /HPF Urine RBC TRACE-INTACT (0-5) Rolo/ul Urine Mucus (Auto) SLIGHT (NEGATIVE) /HPF Ur Culture Indicated? YES Urine Glucose NEGATIVE (NEGATIVE) mg/dL - Progress Progress: improved Progress Note: 06/18/22 00:05 Pain greatly improved w 15mg IV Toradol [id number] po x1 Flagyl 500mg po x1 06/18/22 00:40 Pt w minimal pain/No evidence of diverticular abscess or perforation on CT so able to be discharged w outpt f/u Counseled pt/family regarding: lab results, diagnosis, need for follow-up, rad results - Departure Departure Disposition: Home Clinical Impression: Diverticulitis, UTI (urinary tract infection) Condition: Stable Critical Care Time: No Referrals: JAIME ONEAL [Primary Care Provider] - Follow up/PCP as directed Instructions: Diverticulitis (DC), Urinary Tract Infection, Adult (DC), Severe Abdominal Pain, Adult (DC) Additional Instructions: Continue with Cipro/Flagyl in the morning Follow up with your family MD on Monday Fluids Pain meds as needed Return to ER for increasing pain or temperature greater than 100.5 Prescriptions: Hydrocodone/Acetaminophen [Hydrocodone-Acetamin 5-325 mg] 1 each PO Q4HPRN PRN #6 tablet MDD 4 tabs PRN Reason: Pain Ciprofloxacin [Cipro 500 MG] 500 mg PO BID #14 tablet Metronidazole 500 mg [Flagyl 500 MG] 500 mg PO TID #21 tablet
[2022-06-17] MEDS ORDERED: TORAdol 30 mg Injection ONE (20:54)
[2022-06-17 21:14] LABS: Appearance SLIGHTLY CLOUDY (CLEAR)
[2022-06-17 21:15] LABS: Bilirubin NEGATIVE (NEGATIVE); Glucose NEGATIVE (NEGATIVE); Ketones TRACE (NEGATIVE); Nitrite NEGATIVE (NEGATIVE); Protein,Urine Dip NEGATIVE (Negative); RBC TRACE-INTACT Ery/ul (0-5); Urobilinogen 0.2 mg/dL (0-1)
[2022-06-17 21:16] LABS: Dipstick done @ ? MAIN LAB
[2022-06-17 21:17] LABS: Absolute Neutrophil Ct (ANC) 9.25 x10^3/uL (1.4-6.9); Basophil (Absolute #) 0.04 x10^3/uL (0-0.4); Eosinophil % 0.2 % (0.00-5.0); Eosinophil (Absolute #) 0.02 x10^3/uL (0-0.5); Hematocrit 34.5 % (35-47); Hemoglobin 11.4 g/dL (12.0-16.0); Lymphocytes % 14.6 % (24.0-44.0); Mean Cell Volume 92.7 fL (78-100); Mean Corpuscular Hemoglobin 30.6 pg (26-32); Mean Platelet Volume 9.9 fL (7.5-11.0); Monocyte (Absolute #) 1.17 x10^3/uL (0.0-1.3); Monocytes % 9.5 % (0.0-12.0); Neutrophil % 74.9 % (36.0-66.0); Platelet Count 209 x10^3/uL (150-450); Red Blood Count 3.72 x10^6/uL (4.1-5.4); Red Cell Distribution Width 13.6 % (11.5-14.0); White Blood Count 12.3 x10^3/uL (4.0-10.5)
[2022-06-17 21:21] LABS: Bacteria RARE /HPF (NEGATIVE); Mucus SLIGHT /HPF (NEGATIVE); Urine Cultured Indicated? YES
[2022-06-17 21:29] LABS: ALBUMIN 4.1 g/dL (3.5-5.0); ALKALINE PHOSPHATASE 60 U/L (38-126); AMYLASE 70 U/L (30-110); ANION GAP 9.5 MEQ/L (5-15); BLOOD UREA NITROGEN 17 mg/dL (7-17); CHLORIDE 101 mmol/L (98-107); Calcium 8.8 mg/dL (8.4-10.2); Carbon Dioxide 27 mmol/L (22-30); Creatinine 1 0.74 mg/dL (0.52-1.04); EST GLOMERULAR FILTRATION RATE > 60.0 ML/MIN; Glucose 99 mg/dL (74-106); LIPASE 103 U/L (23-300); Potassium 3.7 mmol/L (3.5-5.1); SGOT/AST 25 U/L (14-36); SGPT/ALT 20 U/L (0-35); SODIUM 134 mmol/L (137-145); Total Protein 7.1 g/dL (6.3-8.2)
[2022-06-18] MEDS ORDERED: Cipro 500 MG PO ONE (00:04)
[2022-06-18] MEDS ORDERED: Flagyl 500 MG PO ONE (00:04)
[2022-06-18 00:05] VITALS: O2SAT 100
[2022-06-18] MEDS ORDERED: Cipro 500 MG ONE (00:07)
[2022-06-18] MEDS ORDERED: Flagyl 500 MG ONE (00:08)
[2022-06-18] MEDS ORDERED: NORCO 5/325 MG PO ONE (00:09)
[2022-06-18 00:11] VITALS: BP 125/73; PULSE 72
[2022-06-18] MEDS ORDERED: NORCO 5/325 MG ONE (00:16)
--- NOTE | 2022-06-18 07:28 | XRAY ---
Indication: Abdomen/suprapubic pain. Multiple contiguous axial images obtained through the abdomen and pelvis using 80 cc Isovue 370 contrast. Comparison: January 28, 2021 Lung bases again demonstrates minimal left base fibrosis/scarring. Heart not enlarged. Noncontrasted stomach and bowel loops nonobstructed. Appendix not visualized. Minimal sigmoid diverticulosis. Mid to distal sigmoid colon now demonstrates mild bowel wall thickening and stranding favoring diverticulitis. No free fluid/air. Both kidneys enhance and excrete. There are a few small bilateral renal cortical cysts not seen on previous noncontrast exam. Remaining liver, gallbladder, pancreas, spleen, adrenal glands, kidneys, ureters, bladder, and uterus are unremarkable. Again mild scattered aortoiliac calcifications. No AAA or pathological retroperitoneal lymphadenopathy. Osseous structures intact again with osteopenia, multilevel degenerative spondylosis, and bilateral L5 spondylolysis with grade 2 listhesis. Impression: 1. New mild sigmoid diverticulitis without complications. 2. Chronic findings including bilateral renal cysts, arteriosclerotic disease, and chronic bony findings Comment: Preliminary interpretation made by [facility]. No critical discrepancy.
== END 2022-06-18 00:27 | disposition home or self-care (01) ==
LOC: ED 19:00
DX: K57.32 Diverticulitis of large intestine without perforation or abscess without bleeding (principal); N39.0 Urinary tract infection, site not specified; R10.2 Pelvic and perineal pain; R11.0 Nausea; E78.5 Hyperlipidemia, unspecified; Z28.310 Unvaccinated for COVID-19; Z79.891 Long term (current) use of opiate analgesic
CPT/HCPCS: 36000; 36415; 74177; 80053; 81015; 82150; 83605; 83690; 84484; 85025; 87086; 96374; 99284; J1885; A9270-GY